=== PATIENT | female | born 1980 | race Hispanic/Latino ===

== ENCOUNTER 2018-09-21 03:37 | Emergency (ER) | payer MEDICAID ==
[2018-09-21 04:04] LABS: APPEARANCE,URINE Turbid (CLEAR); BASOPHILS % (AUTO) 0.5 % (0.0-5.0); BILIRUBIN,URINE Negative (NEGATIVE); COLOR,URINE Yellow (YELLOW); EOSINOPHILS % (AUTO) 2.2 % (0.0-8.0); GLUCOSE, URINE (UA) Negative (NEGATIVE); HEMATOCRIT 37.2 % (36-48); KETONES,URINE Negative (NEGATIVE); LEUKOCYTE ESTERASE ,URINE Trace (NEGATIVE); LYMPHOCYTES % (AUTO) 41.8 % (21.0-51.0); MEAN CORPUSCULAR HEMOGLOBIN 30.9 pg (27.0-33.0); MEAN CORPUSCULAR HGB CONC 33.6 g/dL (32.0-36.0); MEAN CORPUSCULAR VOLUME 92.1 fL (79-99); MONOCYTES % (AUTO) 7.5 % (3.0-13.0); NITRATE,URINE Negative (NEGATIVE); OCCULT BLOOD,URINE Large (NEGATIVE); PH,URINE 7.5 (5.0-8.0); PLATELET COUNT (AUTO) 238 K/uL (130-400); PROTEIN,URINE Negative (NEGATIVE); RED BLOOD CELL COUNT(AUTO) 4.04 MIL/uL (4.00-5.50); RED CELL DISTRIBUTION WIDTH 12.6 % (11.0-15.5); WHITE BLOOD COUNT (AUTO) 10.5 K/uL (4.8-10.8)
[2018-09-21 04:10] LABS: HCG,QUAL RESULT POSITIVE (NEGATIVE)
[2018-09-21 04:15] LABS: AMORPHOUS SEDIMENT,UR Moderate /LPF (None Seen); BACTERIA,URINE Few /HPF (None Seen); CREATININE 0.5 mg/dL (0.5-1.5); POTASSIUM 3.6 mmol/L (3.5-5.1); SQUAMOUS EPITHELIAL CELL,UR Moderate /HPF (0-2)
[2018-09-21 04:20] LABS: ALBUMIN 3.6 g/dL (3.5-5.0); BILIRUBIN,TOTAL 0.3 mg/dL (0.2-1.0); TOTAL PROTEIN, SERUM 7.2 g/dL (6.0-8.3)
== END 2018-09-21 05:49 | disposition home or self-care (01) ==
LOC: EDH 03:37
DX: O20.0 Threatened abortion (principal); Z3A.09 9 weeks gestation of pregnancy; Z98.890 Other specified postprocedural states
CPT/HCPCS: 36415; 76801; 80053; 81001; 81025; 84702; 85025; 86850; 86900; 86901

== ENCOUNTER 2019-03-26 14:48 | Observation (INO) | payer MEDICAID ==
[~2019-03-26] VITALS: Ht 157.5 cm; Wt 97.5 kg
[2019-03-26 16:28] VITALS: BP 112/72
== END 2019-03-26 16:44 | disposition home or self-care (01) ==
LOC: LDH 14:48
PROVIDERS: ADMIT Specialist; ATTEND Specialist
DX: O26.853 Spotting complicating pregnancy, third trimester (principal); O62.9 Abnormality of forces of labor, unspecified; O09.523 Supervision of elderly multigravida, third trimester; Z3A.35 35 weeks gestation of pregnancy
CPT/HCPCS: G0378 ×2

== ENCOUNTER 2019-04-06 18:00 | Observation (INO) | payer MEDICAID ==
[~2019-04-06] VITALS: Ht 152.4 cm; Wt 97.1 kg
[2019-04-06 19:11] LABS: BASOPHILS % (AUTO) 0.2 % (0.0-5.0); EOSINOPHILS % (AUTO) 1.1 % (0.0-8.0); HEMATOCRIT 34.7 % (36-48); LYMPHOCYTES % (AUTO) 31.1 % (21.0-51.0); MEAN CORPUSCULAR HGB CONC 33.4 g/dL (32.0-36.0); MEAN CORPUSCULAR VOLUME 86.8 fL (79-99); MONOCYTES % (AUTO) 8.1 % (3.0-13.0); NEUTROPHILS % (AUTO) 59.2 % (40.0-77.0); PLATELET COUNT (AUTO) 224 K/uL (130-400); RED CELL DISTRIBUTION WIDTH 12.4 % (11.0-15.5); WHITE BLOOD COUNT (AUTO) 10.4 K/uL (4.8-10.8)
[2019-04-06 19:18] LABS: APPEARANCE,URINE Clear (CLEAR); BILIRUBIN,URINE Negative (NEGATIVE); COLOR,URINE Yellow (YELLOW); GLUCOSE, URINE (UA) Negative (NEGATIVE); KETONES,URINE Negative (NEGATIVE); LEUKOCYTE ESTERASE ,URINE Moderate (NEGATIVE); NITRATE,URINE Negative (NEGATIVE); OCCULT BLOOD,URINE Trace (NEGATIVE); PH,URINE 6.5 (5.0-8.0); PROTEIN,URINE Negative (NEGATIVE)
[2019-04-06 19:27] LABS: CREATININE 0.6 mg/dL (0.5-1.5); POTASSIUM 3.9 mmol/L (3.5-5.1)
[2019-04-06 19:32] LABS: ALBUMIN 2.6 g/dL (3.5-5.0); BILIRUBIN,TOTAL 0.2 mg/dL (0.2-1.0); URIC ACID 3.7 mg/dL (2.6-7.2)
[2019-04-06 19:47] LABS: RBC,URINE 0-1 /HPF (0-1)
[2019-04-06 19:48] LABS: BACTERIA,URINE Few /HPF (None Seen)
[2019-04-06 19:53] LABS: INR 0.87 (0.85-1.15); PARTIAL THROMBOPLASTIN TIME 25.4 SEC (26.3-35.5); PROTHROMBIN TIME 9.2 SEC (9.6-11.6)
== END 2019-04-06 22:00 | disposition home or self-care (01) ==
LOC: LDH 18:00
PROVIDERS: ADMIT Specialist; ATTEND Specialist
DX: O26.893 Other specified pregnancy related conditions, third trimester (principal); R03.0 Elevated blood-pressure reading, without diagnosis of hypertension; Z3A.37 37 weeks gestation of pregnancy
CPT/HCPCS: 36415; 76819; 80053; 81001; 84550; 85025; 85384; 85610; 85730; G0378 ×3

== ENCOUNTER 2019-04-09 09:36 | Observation (INO) | payer MEDICAID ==
[~2019-04-09] VITALS: Ht 152.4 cm; Wt 97.5 kg
[2019-04-09 10:19] LABS: APPEARANCE,URINE Clear (CLEAR); BILIRUBIN,URINE Negative (NEGATIVE); COLOR,URINE Yellow (YELLOW); GLUCOSE, URINE (UA) Negative (NEGATIVE); KETONES,URINE Negative (NEGATIVE); LEUKOCYTE ESTERASE ,URINE Small (NEGATIVE); NITRATE,URINE Negative (NEGATIVE); OCCULT BLOOD,URINE Negative (NEGATIVE); PROTEIN,URINE Trace mg/dL (NEGATIVE)
[2019-04-09 10:35] LABS: BACTERIA,URINE Few /HPF (None Seen); MUCUS,URINE Moderate LPF (None Seen); RBC,URINE None Seen /HPF (0-1)
[2019-04-09 12:01] VITALS: BP 132/60
== END 2019-04-09 12:04 | disposition home or self-care (01) ==
LOC: LDH 09:36
PROVIDERS: ADMIT Specialist; ATTEND Specialist
DX: O09.93 Supervision of high risk pregnancy, unspecified, third trimester (principal); Z3A.37 37 weeks gestation of pregnancy
CPT/HCPCS: 59025; 76819; 81001; G0378

== ENCOUNTER 2019-08-22 | Emergency (ER) | payer MEDICAID | END 2019-08-22 08:58 | disposition home or self-care (01) ==

== ENCOUNTER 2020-08-27 19:24 | Emergency (ER) | payer MEDICAID ==
[~2020-08-27] VITALS: Ht 152.4 cm; Wt 90.7 kg
[~2020-08-27 19:24] MED LIST: PREN-196 PO
[2020-08-27 19:26] VITALS: BP 160/93
[2020-08-27] MEDS ORDERED: ACYC400T20 PO (20:01)
[2020-08-27] MEDS ORDERED: PRED20TA3 PO (20:01)
== END 2020-08-27 20:30 | disposition home or self-care (01) ==
LOC: EDH 19:24
DX: S00.521A Blister (nonthermal) of lip, initial encounter (principal); B00.9 Herpesviral infection, unspecified; Z86.19 Personal history of other infectious and parasitic diseases; Z79.52 Long term (current) use of systemic steroids; X58.XXXA Exposure to other specified factors, initial encounter; Y93.89 Activity, other specified; Y92.89 Other specified places as the place of occurrence of the external cause; Y99.8 Other external cause status

== ENCOUNTER 2021-03-27 11:19 | Emergency (ER) | payer MEDICAID ==
[~2021-03-27] VITALS: Ht 152.4 cm; Wt 90.7 kg
[~2021-03-27 11:19] MED LIST changes: +ACYC400T20 PO; +PRED20TA3 PO
[2021-03-27 11:24] VITALS: BP 123/57
[2021-03-27] MEDS ORDERED: PRED20TA3 PO (12:12)
[2021-03-27] MEDS ORDERED: IBUP-2070 PO (12:12)
[2021-03-27] MEDS ORDERED: ACYC-138 PO (12:12)
== END 2021-03-27 12:22 | disposition home or self-care (01) ==
LOC: EDH 11:19
DX: B00.1 Herpesviral vesicular dermatitis (principal); B02.9 Zoster without complications; Z90.49 Acquired absence of other specified parts of digestive tract; Z98.890 Other specified postprocedural states; Z79.899 Other long term (current) drug therapy

== ENCOUNTER 2021-06-30 17:23 | Emergency (ER) | payer MEDICAID ==
[~2021-06-30] VITALS: Ht 152.4 cm; Wt 90.7 kg
[~2021-06-30 17:23] MED LIST changes: +ACYC-138 PO; +IBUP-2070 PO
[2021-06-30 17:56] LABS: APPEARANCE,URINE Clear (CLEAR); BILIRUBIN,URINE Negative (NEGATIVE); COLOR,URINE Yellow (YELLOW); GLUCOSE, URINE (UA) Negative (NEGATIVE); KETONES,URINE Negative (NEGATIVE); LEUKOCYTE ESTERASE ,URINE Negative (NEGATIVE); NITRATE,URINE Negative (NEGATIVE); OCCULT BLOOD,URINE Negative (NEGATIVE); PH,URINE 8.5 (5.0-8.0); PROTEIN,URINE Negative (NEGATIVE); UROBILINOGEN,URINE 0.2 mg/dL (0.2-1.0)
[2021-06-30] MEDS ORDERED: CYCLOBENZAPRINE HCL 10 MG TABLET PO ONE (18:00)
[2021-06-30] MEDS ORDERED: KETOROLAC 60 MG VIAL (30MG/ML) IM ONE (18:00)
[2021-06-30 18:09] LABS: BASOPHILS % (AUTO) 0.4 % (0.0-5.0); EOSINOPHILS % (AUTO) 2.2 % (0.0-8.0); HEMATOCRIT 37.1 % (36-48); LYMPHOCYTES % (AUTO) 27.1 % (21.0-51.0); MEAN CORPUSCULAR HEMOGLOBIN 28.8 pg (27.0-33.0); MEAN CORPUSCULAR HGB CONC 32.9 g/dL (32.0-36.0); MEAN CORPUSCULAR VOLUME 87.5 fL (79-99); MONOCYTES % (AUTO) 5.5 % (3.0-13.0); NEUTROPHILS % (AUTO) 64.6 % (40.0-77.0); PLATELET COUNT (AUTO) 267 K/uL (130-400); RED BLOOD CELL COUNT(AUTO) 4.24 MIL/uL (4.00-5.50); RED CELL DISTRIBUTION WIDTH 12.5 % (11.0-15.5)
[2021-06-30 18:19] LABS: CREATININE 0.6 mg/dL (0.5-1.5); POTASSIUM 3.8 mmol/L (3.5-5.1)
[2021-06-30 18:28] LABS: BILIRUBIN,TOTAL 0.3 mg/dL (0.2-1.0); TOTAL PROTEIN, SERUM 7.6 g/dL (6.0-8.3)
[2021-06-30] MEDS ORDERED: CYCL10TA16 PO (18:51)
[2021-06-30] MEDS ORDERED: NAPR-1180 PO (18:51)
[2021-06-30 19:03] VITALS: BP 139/81
== END 2021-06-30 19:03 | disposition home or self-care (01) ==
LOC: EDH 17:23
DX: S29.012A Strain of muscle and tendon of back wall of thorax, initial encounter (principal); R03.0 Elevated blood-pressure reading, without diagnosis of hypertension; E66.9 Obesity, unspecified; Z68.39 Body mass index [BMI] 39.0-39.9, adult; X58.XXXA Exposure to other specified factors, initial encounter; Y93.89 Activity, other specified; Y92.89 Other specified places as the place of occurrence of the external cause; Y99.8 Other external cause status
CPT/HCPCS: 36415; 71045; 80053; 81003; 83690; 84484; 85025; 96372; 99284; J1885